=== PATIENT | female | born 1965 | race Caucasian/White ===

== ENCOUNTER → 2017-11-17 11:03 | Outpatient (CLI) | payer OTHER, SELFPAY ==
--- NOTE | 2017-11-17 11:09 | CT_ITS ---
STUDY: LOW DOSE CT LUNG CANCER SCREENING REASON FOR EXAM: Female, 52 years old. History of positive PPD for 22 years. COPD. Right-sided chest pain RADIATION DOSAGE (If Supplied By Facility): CTDIvol = ( 3.02 ) mGy, DLP = ( 103.07 ) mGycm TECHNIQUE: No contrast was administered. Low dose technique was utilized (average mAS-38 and kVp 120). 1.25 mm axial source images with a slice interval of 1.25-mm were reconstructed in lung windows. 2.5 mm axial source images with a slice interval of 2.5-mm were reconstructed in lung windows. 5.0 mm axial source images with a slice interval of 5.0-mm were reconstructed in soft tissue windows. Nodule measured using lung windows on PACS and/or independent workstation with automated measurement of minimum and maximum diameter. Nodule measurement reported as average diameter rounded to the nearest whole number. Growth is defined as an increase ins size of greater than 1.5 mm. COMPARISON: None. NODULES: There are 2 tiny 3 mm nodules in the periphery of the right apex on axial images 43-47. Both of these appear to have a speck of calcium and are most consistent with granulomas, but follow-up in 6 months is recommended in this patient with a history of smoking. A 3 mm calcified granuloma is seen in the superior segment of the left lower lobe, axial image 105. No other nodules are seen. No infiltrates. No effusions. Evaluation of the soft tissues is very limited on this noncontrast low radiation dose study but no gross acute abnormality seen. Heart size is normal. Grossly normal aorta and pulmonary arteries. No gross mediastinal mass. Small indeterminate mediastinal lymph nodes are seen. Indeterminant lymph nodes also seen in both axilla. Limited views through the upper abdomen show no gross acute abnormality. Skeletal structures are grossly negative. CT/Low Dose CT Lung Screening IMPRESSION: No definite acute abnormality. No specific evidence for COPD. 2 3 mm nodules in the right apex are most likely granulomas but recommend follow-up in 6 months. Note that this low dose screening CT scan is inadequate to evaluate the soft tissues. Electronically Signed: Ephraim Mora MD at 18:18 EDT , Service support ,
== END ==
PROVIDERS: Family Provider Family Medicine; PCP Family Medicine; Referring Provider Family Medicine; Visit Provider Family Medicine
DX: Z12.2 Encounter for screening for malignant neoplasm of respiratory organs (principal); J42 Unspecified chronic bronchitis; Z72.0 Tobacco use
CPT/HCPCS: G0297

== ENCOUNTER → 2017-11-22 16:00 | Outpatient (CLI) | payer OTHER, SELFPAY | PROVIDERS: Family Provider Family Medicine; PCP Family Medicine; Referring Provider Otolaryngology Otolaryngology/Facial Plastic Surgery; Visit Provider Otolaryngology Otolaryngology/Facial Plastic Surgery | DX: J02.9 Acute pharyngitis, unspecified (principal) | CPT/HCPCS: 87070 ==

== ENCOUNTER → 2017-12-08 08:58 | Outpatient (CLI) | payer OTHER, SELFPAY ==
--- NOTE | 2017-12-08 09:00 | CT_ITS ---
STUDY: CT MAXILLOFACIAL SINUSES REASON FOR EXAM: Female, 52 years old. Sinusitis RADIATION DOSAGE (If Supplied By Facility): CTDIvol = ( 29.38 ) mGy, DLP = ( 415.23 ) mGycm TECHNIQUE: The patient was scanned in a multi detector CT scanner. High resolution axial imaging was performed without the administration of intravenous contrast material. Sagittal and coronal images were reconstructed. # of Images: 402 Individualized dose optimization techniques were used for this CT. COMPARISON: None. FINDINGS: No acute fractures identified. There is some degenerative changes seen within the visualized cervical spine. The mastoid air cells appear clear. Carotid artery calcifications are noted. There is minimal paranasal sinus thickening. There is no air-fluid levels identified. The bilateral globes appear intact. No significant intraconal fatty stranding is seen. Visualized intracranial contents appear grossly unremarkable. CT/Sinus/Facial Bone IMPRESSION: Minimal paranasal sinus thickening. No air-fluid levels. Electronically Signed: Thomas Mabry, at 7:57 EDT Tel , Service support ,
== END ==
PROVIDERS: Family Provider Family Medicine; PCP Family Medicine; Referring Provider Otolaryngology Otolaryngology/Facial Plastic Surgery; Visit Provider Otolaryngology Otolaryngology/Facial Plastic Surgery
DX: J32.9 Chronic sinusitis, unspecified (principal)
CPT/HCPCS: 70486

== ENCOUNTER → 2017-12-21 08:02 | Outpatient (CLI) | payer OTHER, SELFPAY ==
--- NOTE | 2017-12-21 08:13 | RAD_ITS ---
STUDY: X-RAY - ESOPHAGUS (BARIUM SWALLOW) WITH FLUOROSCOPY REASON FOR EXAM: Female, 52 years old. Dysphagia. Difficulty breathing. TECHNIQUE: 30 view(s) of the esophagus were obtained following swallowing of barium. FLUOROSCOPY TIME (if supplied): (0:56) minutes/seconds COMPARISON: None. FINDINGS: There is no demonstrated esophageal foreign body. There is no demonstrated stricture or mucosal abnormality. Normal gastroesophageal junction, without a demonstrated hiatal hernia. The patient ingested a 12 mm tablet of barium without any difficulty. Normal visualized aortic arch and descending thoracic aorta. Normal visualized pulmonary parenchyma. Normal visualized osseous structures of the thorax. RAD/Esophagus Only IMPRESSION: Normal plain film x-ray examination (barium swallow) of the esophagus. Electronically Signed: Scooby Phelps MD at 9:12 EDT Tel [phone], Service support ,
== END ==
LOC: RAD 08:02
PROVIDERS: Family Provider Family Medicine; PCP Family Medicine; Referring Provider Otolaryngology Otolaryngology/Facial Plastic Surgery; Visit Provider Otolaryngology Otolaryngology/Facial Plastic Surgery
DX: R13.10 Dysphagia, unspecified (principal)
CPT/HCPCS: 74220

== ENCOUNTER → 2018-01-22 15:01 | Outpatient (CLI) | payer OTHER, SELFPAY ==
[2018-01-22 18:08] LABS: ALB/GLOB Ratio 0.9 RATIO (0.9-2.4); AST(SGOT) 17 U/L (15-37); Alanine Aminotransfer ALT/SGPT 26 U/L (13-56); Albumin, Serum 3.7 g/dL (3.2-5.0); Alkaline Phosphatase 85 U/L (45-117); Anion Gap 8 (5-15); BUN 9 mg/dL (7-18); BUN/Creat Ratio 12.3 RATIO (10-20); CRP 4.97 mg/L (0.0-3.0); Calcium,Total 8.8 mg/dL (8.5-10.1); Chloride 104 mmol/L (98-107); Creatinine, Serum 0.73 mg/dL (0.55-1.02); EST Glomerular Filtration Rate 88 mL/min (>60); Est Glom Filt Rate - Afr Amer 107 mL/min (>60); Globulin 4.1 g/dL (2.2-4.2); Glucose 111 mg/dL (74-106); Potassium 3.6 mmol/L (3.5-5.1); Protein, Total 7.8 g/dL (6.4-8.2); Sodium Level 140 mmol/L (136-145)
== END ==
PROVIDERS: Family Provider Family Medicine; PCP Family Medicine; Referring Provider Internal Medicine Gastroenterology; Visit Provider Internal Medicine Gastroenterology
DX: R10.9 Unspecified abdominal pain (principal); R10.13 Epigastric pain
CPT/HCPCS: 36415; 80053; 82784; 83516; 86140; 86255

== ENCOUNTER → 2019-04-09 14:47 | Outpatient (CLI) | payer OTHER, SELFPAY ==
[2019-04-09 17:27] LABS: Absolute Lymphocyte Count 3.67 X10^3/uL (0.83-4.51); Absolute Neutrophil Count 4.8 X10^3/uL (2.0-7.7); Basophil# 0.09 X10^3/uL; Basophil% 0.9 % (0-1); Eosinophil# 0.26 X10^3/uL; Eosinophils% 2.7 % (0-5); Hematocrit 39.7 % (37-47); Hemoglobin 12.7 g/dL (12.0-15.0); Lymphocyte # 3.67 X10^3/ul (4.0); Lymphocyte % 38.7 % (19-41); Mean Corpuscular Hgb 28.8 pg (27.0-32.0); Mean Platelet Vol. 8.7 fl (6.2-12.0); Monocyte# 0.61 X10^3/uL; Monocyte% 6.4 % (0-10); NRBC Flagged by Analyzer 0 % (0-5); Neutrophil # 4.84 X10^3/uL (2.7-7.7); Neutrophil % 51.1 % (47-70); Platelet Count 367 K/mm3 (150-450); RBC Distribution Width CV 13.9 % (11.6-14.6); RBC Distribution Width SD 45.7 fl (35.1-43.9); Red Blood Count 4.41 M/mm3 (4.2-5.4); White Blood Count 9.5 K/mm3 (4.4-11.0)
[2019-04-09 17:51] LABS: Progesterone Level 0.06 ng/mL (See Comment); Vitamin B12 543 pg/mL (211-911)
[2019-04-09 18:28] LABS: Amphetamine Urine VISTA NEGATIVE (<1000 ng/mL); Barbiturate Urine VISTA NEGATIVE (< 200 ng/mL); Benzodiazepine Urine VISTA NEGATIVE (< 200 ng/mL); Cocaine Urine VISTA NEGATIVE (< 300 ng/mL); Ecstacy Urine VISTA NEGATIVE (< 500 ng/mL); Methadone Urine VISTA NEGATIVE (< 300 ng/mL); PCP Urine VISTA NEGATIVE (< 25 ng/mL); THC Urine VISTA NEGATIVE (< 50 ng/mL); Vista UDS pH Range 6
[2019-04-09 18:59] LABS: AST(SGOT) 25 U/L (15-37); Alanine Aminotransfer ALT/SGPT 42 U/L (13-56); Albumin, Serum 3.9 g/dL (3.2-5.0); Alkaline Phosphatase 92 U/L (45-117); Anion Gap 7 (5-15); BUN 9 mg/dL (7-18); BUN/Creat Ratio 12.7 RATIO (10-20); Calcium,Total 9.4 mg/dL (8.5-10.1); Chloride 104 mmol/L (98-107); Creatinine, Serum 0.71 mg/dL (0.55-1.02); EST Glomerular Filtration Rate 91 mL/min (>60); Est Glom Filt Rate - Afr Amer 111 mL/min (>60); Estradiol 16.2 pg/mL; Ferritin 26 ng/mL (8-252); Free T3 3.3 pg/mL (2.18-3.98); Globulin 3.9 g/dL (2.2-4.2); Glucose 92 mg/dL (74-106); Iron 50 ug/dL (50-170); Potassium 3.8 mmol/L (3.5-5.1); Protein, Total 7.8 g/dL (6.4-8.2); Sodium Level 140 mmol/L (136-145); T4 Free Direct 1.09 ng/dL (0.76-1.46); Thyroid Stim Hormone (TSH) 1.05 uIU/mL (0.358-3.74)
[2019-04-11 15:19] LABS: ANTINUCLEAR ANTIBODIES DIRECT Negative (Negative)
[2019-04-11 16:08] LABS: Endomysial Antibody IgA Negative (Negative)
[2019-04-11 16:46] LABS: Immunoglobulin A 165 mg/dL (87-352); t-Transglutaminase IgA <2 U/mL (0-3)
== END ==
LOC: BFHLAB 14:49
PROVIDERS: PCP Family Medicine; Visit Provider Family Medicine
DX: Z79.899 Other long term (current) drug therapy (principal); R49.0 Dysphonia; R53.83 Other fatigue; E55.9 Vitamin D deficiency, unspecified; E53.8 Deficiency of other specified B group vitamins; R68.2 Dry mouth, unspecified; M25.50 Pain in unspecified joint; D64.9 Anemia, unspecified; R61 Generalized hyperhidrosis; N91.0 Primary amenorrhea; R10.9 Unspecified abdominal pain
CPT/HCPCS: 36415; 80053; 80307; 82306; 82570; 82607; 82670; 82728; 82784; 83516; 83540; 84144; 84439; 84443; 84481; 85025; 86038; 86225; 86235; 86255

== ENCOUNTER → 2019-04-19 10:48 | Outpatient (CLI) | payer OTHER, SELFPAY ==
--- NOTE | 2019-04-19 10:58 | RAD_ITS ---
STUDY: X-RAY - PARANASAL SINUSES REASON FOR EXAM: Female, 53 years old. SINUSITIS TECHNIQUE: 3 view(s) of the paranasal sinuses were obtained. COMPARISON: None. FINDINGS: Normal visualized frontal, maxillary, ethmoidal and sphenoid sinuses. Normal visualized facial bones. The soft tissue structures are unremarkable. RAD/Sinuses min 3 Views IMPRESSION: Normal x-rays of the paranasal sinuses. Electronically Signed: Fermin Thompson MD ([place]) at 12:57 EST , Service support ,
--- NOTE | 2019-04-19 11:01 | US_ITS ---
STUDY: THYROID ULTRASOUND REASON FOR EXAM: Female, 53 years old. THYROMEGALY, LYMPHADENOPATHY TECHNIQUE: Ultrasound evaluation of the thyroid was performed with real-time and static goode-scale imaging. COMPARISON: None. FINDINGS: RIGHT LOBE: The right lobe of the thyroid gland measures 4.2 x 1.5 x 2.0 cm. There is a homogeneous echotexture. There are no demonstrated solid, cystic or complex lesions. LEFT LOBE: The left lobe of the thyroid gland measures 4.1 x 1.6 x 1.3 cm. There is a homogeneous echotexture. There are no demonstrated solid, cystic or complex lesions. ISTHMUS: The isthmus measures 0.4 cm. There are mildly enlarged lymph nodes of the bilateral submandibular spaces as well as left jugular chain. Right submandibular lymph node measures 23 x 14 x 9 mm and left submandibular lymph node measures 23 x 15 x 7 mm. Left jugular chain lymph node measures 26 x 12 x 6 mm. The lymph nodes do have a preserved reniform shape, smooth margins and central echogenic valeri, suggesting reactive causes. US/Thyroid IMPRESSION: 1. Normal ultrasound examination of the thyroid. 2. Prominent, reactive appearing lymph nodes of the bilateral submandibular and left jugular chains. Electronically Signed: Fermin Thompson MD ([place]) at 12:56 EST , Service support ,
== END ==
LOC: US 10:50
PROVIDERS: PCP Family Medicine; Referring Provider Family Medicine; Visit Provider Family Medicine
DX: R59.0 Localized enlarged lymph nodes (principal); E01.0 Iodine-deficiency related diffuse (endemic) goiter; J32.9 Chronic sinusitis, unspecified
CPT/HCPCS: 70220; 76536

== ENCOUNTER → 2019-05-02 15:28 | Outpatient (CLI) | payer OTHER, SELFPAY ==
[2019-05-02 16:25] LABS: Creatinine, Urine (random) < 13.00 mg/dL (NO RANGE EST.)
[2019-05-02 16:26] LABS: Amphetamine Urine VISTA NEGATIVE (<1000 ng/mL); Barbiturate Urine VISTA NEGATIVE (< 200 ng/mL); Benzodiazepine Urine VISTA NEGATIVE (< 200 ng/mL); Cocaine Urine VISTA NEGATIVE (< 300 ng/mL); Ecstacy Urine VISTA NEGATIVE (< 500 ng/mL); Methadone Urine VISTA NEGATIVE (< 300 ng/mL); PCP Urine VISTA NEGATIVE (< 25 ng/mL); THC Urine VISTA NEGATIVE (< 50 ng/mL); Vista UDS pH Range 6
== END ==
LOC: LAB.FUTURE 15:29
PROVIDERS: PCP Family Medicine; Visit Provider Family Medicine
DX: Z79.899 Other long term (current) drug therapy (principal)
CPT/HCPCS: 80307; 82570

== ENCOUNTER 2020-08-02 15:30 | Emergency (ER) | payer BC, SELFPAY ==
[2020-08-02 15:31] VITALS: BP 165/108; PULSE 116; RESP 18; TEMP 36.8; O2SAT 97; BMI 28.9
[2020-08-02 15:59] LABS: Bacteria 0 SEEN /hpf (None Seen); Mucous, Urine 0 SEEN /hpf (<or=2+); White Blood Cells 0 SEEN /hpf (0-5)
[2020-08-02 16:04] LABS: Color, Urine Yellow (Yellow); Glucose, Dipstick Normal (Normal); Ketone-Dipstick Negative (Negative); Leukocyte Esterase-Dipstick Negative /ul (Negative); Nitrite-Dipstick Negative (Negative); Occult Blood-Urine 25 /ul (Negative); Protein-Dipstick Negative (Negative); Specific Gravity, Urine 1.005 (1.002-1.030); Urine Bilirubin Dipstick Negative (Negative); Urine Clarity Sl. Cloudy (Clear); Urine Urobilinogen Normal (Normal)
[2020-08-02 16:19] LABS: Red Blood Cells-Urine 0-5 SEEN /hpf (0-5); Squamous Epithelial Cells - UA 0-5 SEEN /hpf (5-10)
--- NOTE | 2020-08-02 16:38 | EDS_ITS ---
HPI HPI - GI History of Present Illness Chief Complaint: GI Bleed Narrative Narrative: Patient presenting to to bloody diarrhea. She states that this has been going on for about the last week. Patient states that she will have a couple up to multiple episodes per day they typically are associated with eating or drinking. States that it is typically explosive diarrhea and there are blood splatters going around the toilet bowl. She denies that she has any gross rectal bleeding. She denies any rectal pain. She does report that she gets some suprapubic pressure. Patient does state that she has been getting some chills associated with this denies any unintended weight loss. She denies any night sweats associated with this. Patient denies that she has had any recent hospital admissions, antibiotics exposures, she does not work in and around a prison no recent abnormal travel. Review of systems otherwise negative. [facility] Medical History Anxiety Bronchitis Chronic hoarseness Chronic obstructive pulmonary disease fallopian tube burst GERD (gastroesophageal reflux disease) HTN (hypertension) Ruptured cyst of ovary Sinus tachycardia Sinusitis SOB (shortness of breath) Tobacco abuse Home Medications hydroxyzine HCl 25 mg PO Q6H PRN 03/10/16 [History Last Taken Unknown] albuterol sulfate 2.5 mg INHALATION Q4H PRN #180 ml 02/07/17 [Rx Last Taken Unknown] albuterol sulfate 90 mcg/actuation aerosol inhaler 1 puff INHALATION Q6H 02/21/17 [History Last Taken Unknown] esomeprazole magnesium 20 mg capsule,delayed release 20 mg PO QDAY cap 02/21/17 [History Last Taken Unknown] acetaminophen 500 mg tablet 1,000 mg PO Q4H PRN tab 02/22/17 [History Last T aken Unknown] lorazepam 0.5 mg tablet 0.5 mg PO QDAY tab 02/22/17 [History Last Taken Unknown] multivitamin 1 tab PO QDAY 02/22/17 [History Last Taken Unknown] omega-3 fatty acids 500 mg capsule 500 mg PO BID cap 02/22/17 [History Last Taken Unknown] ipratropium 0.5 mg-albuterol 3 mg (2.5 mg base)/3 mL nebulization soln 3 ml INHALATION Q4H PRN PRN #360 vial 09/30/18 [Rx Last Taken Unknown] loperamide [Imodium A-D] 2 mg PO Q6H PRN #14 cap 08/02/20 [Rx Last Taken Unknown] Allergy/AdvReac Type Severity Reaction Status Date / Time latex Allergy Severe Hives Verified 08/02/20 15:31 Penicillins Allergy Severe Angioedema Verified 08/02/20 15:31 diltiazem [From Cardizem] AdvReac Intermediate knee Verified 08/02/20 15:31 swelling methylprednisolone AdvReac Intermediate Other Verified 08/02/20 15:31 prednisone AdvReac Intermediate Other Verified 08/02/20 15:31 Sulfa (Sulfonamide AdvReac Mild Other Verified 08/02/20 15:31 Antibiotics) clarithromycin [From Biaxin] AdvReac Unknown Verified 08/02/20 15:31 paroxetine [From Paxil] AdvReac Unknown Verified 08/02/20 15:31 anti depressant AdvReac Severe Anxious Uncoded 08/02/20 15:31 Family History Mother Heart disease Hypertension Uncle Myocardial infarction Aunt Kidney disease Father CVA (cerebral vascular accident) Cancer Sister Asthma Anxiety Surgical History History of cholecystectomy Social History Smoking Status: Current every day smoker tobacco type: cigarettes second hand exposure: Yes alcohol intake: never substance use type: does not use ROS ROS ED Constitutional Constitutional ED: Reports chills ENT ENT ED: Denies rhinorrhea Cardiovascular Cardiovascular: Denies chest pain Respiratory/Chest Respiratory/Chest: Denies cough or dyspnea Gastrointestinal Gastrointestinal: Reports diarrhea Genitourinary Genitourinary ED: Denies dysuria or hematuria Musculoskeletal Musculoskeletal: Denies back pain Integumentary Denies rash Neurologic Neurologic: Denies paresthesias or weakness Psychiatric Psychiatric: Denies depression Endocrine Endocrinology: Denies fatigue Allergic/Immunologic Allergic/Immunologic ED: Denies urticaria EXAM Physical Exam Const Vital Signs: 08/02/20 15:31 Temperature 98.2 F Temperature Source Temporal Pulse Rate 116 H Respiratory Rate 18 Blood Pressure 165/108 H Blood Pressure Mean 127 Pulse Ox 97 Oxygen Delivery Method Room Air Positive well nourished and well developed General Appearance ED: well developed and NAD HEENT Reports moist mucous membranes HEENT Narrative: No evidence of conjunctival pallor or scleral icterus Negative for trauma or tenderness Eyes EOMs intact bilaterally Neck no lymphadenopathy, supple and no JVD Chest Wall inspection of chest normal Resp normal respiratory effort and clear to auscultation bilaterally Cardio regular rate, regular rhythm, no murmurs and peripheral pulses 2+ throughout GI normal to inspection, nondistended, normoactive bowel sounds, non-tender and no masses GI Narrative: Chaperoned rectal exam shows a normal external anus with mild erythematous changes consistent with the patient having diarrhea. She has a nontender lower digital rectal exam, no evidence of hernias, no evidence of gross bleeding. No palpable masses noted. Palpation: soft Back/Spine normal to inspection Extremity normal to inspection General Extremety ED: Negative for tenderness Neuro oriented x3 and no sensory deficits noted Sensorium / Orientation: alert Motor Exam: strength 5/5 throughout Psych mental status grossly normal Skin no rashes or lesions noted MDM MDM MDM Narrative Medical decision making narrative: Patient presented secondary to frequent diarrhea as well as bloody stools. She does not have any gross bleeding on physical exam. Patient's hemoglobin is stable at 14.2 she is not on any sort of anticoagulants no significant evidence of other abnormalities in her CBC chemistry and urinalysis. Patient at this point has been having frequent diarrhea, and has been having some blood in there. She has no risk factors for infectious colitis I placed patient on a course of Imodium. Due to her bleeding she will be given a referral to Dr. Bowers for potential colonoscopy. Patient was discharged in stable condition. Lab Data Labs: Laboratory Results - last 24 hr 08/02/20 08/02/20 08/02/20 15:50 16:53 16:53 WBC 8.9 RBC 4.95 Hgb 14.2 Hct 44.2 MCV 89.3 MCH 28.7 MCHC 32.1 RDW Std Deviation 44.5 H RDW Coeff of Hilario 13.6 Plt Count 371 MPV 8.3 Immature Gran % (Auto) 0.300 Neut % (Auto) 58.5 Lymph % (Auto) 31.5 Wheeler % (Auto) 7.7 Eos % (Auto) 1.2 Baso % (Auto) 0.8 Absolute Neuts (auto) 5.2 Absolute Lymphs (auto) 2.79 Nucleated RBC % 0 Sodium 140 Potassium 3.7 Chloride 105 Carbon Dioxide 28.0 Anion Gap 7 BUN 6 L Creatinine 0.78 Estim Creat Clear Calc 60.77 Est GFR (MDRD) Af Amer 98 Est GFR (MDRD) Non-Af 81 BUN/Creatinine Ratio 7.7 L Glucose 94 Calcium 9.2 Urine Color Yellow Urine Clarity Sl. Cloudy Urine pH 7.0 Ur Specific [place] 1.005 Urine Protein Negative Urine Glucose (UA) Normal Urine Ketones Negative Urine Occult Blood 25 H Urine Nitrite Negative Urine Bilirubin Negative Urine Urobilinogen Normal Ur Leukocyte Esterase Negative Urine RBC 0-5 SEEN Urine WBC 0 SEEN Ur Squamous Epith Cells 0-5 SEEN Urine Bacteria 0 SEEN Urine Mucus 0 SEEN Discharge Plan Triage Chief Complaint: GI Bleed ED Provider: Delfino Isidro Dx/Rx/DC Orders Clinical Impression: Bloody diarrhea Instructions: ED Lower GI Bleeding (Stable) Prescriptions: New loperamide [Imodium A-D] 2 mg capsule 2 mg PO Q6H PRN (Reason: loose stool) Qty: 14 RF: 0 No Action multivitamin tablet 1 tab PO QDAY RF: 0 albuterol sulfate [ProAir HFA] 90 mcg/actuation HFA aerosol inhaler 1 puff INHALATION Q6H RF: 0 esomeprazole magnesium [Nexium] 20 mg capsule,delayed release(DR/EC) 20 mg PO QDAY RF: 0 acetaminophen [Tylenol Extra Strength] 500 mg tablet 1,000 mg PO Q4H PRNRF: 0 hydroxyzine HCl 25 MG tablet 25 mg PO Q6H PRN (Reason: Anxiety) RF: 0 lorazepam 0.5 MG tablet 0.5 mg PO QDAY RF: 0 omega-3 fatty acids 500 MG capsule 500 mg PO BID RF: 0 albuterol sulfate 2.5 mg /3 mL (0.083 %) solution for nebulization 2.5 mg INHALATION Q4H PRN (Reason: Sob &/Or Wheezing) Qty: 180 RF: 3 ipratropium-albuterol 0.5 mg-3 mg(2.5 mg base)/3 mL solution for nebulization 3 ml INHALATION Q4H PRN PRN (Reason: COPD J44.9) Qty: 360 RF: 3 Primary Care Provider: Areli Hobson Referrals: Linden Bowers MD [STAFF PHYSICIAN] - 1 Week if not improving Areli Hobson DO [Primary Care Provider] - Disposition Disposition: Home, self care
[2020-08-02 17:08] LABS: Absolute Lymphocyte Count 2.79 X10^3/uL (0.83-4.51); Absolute Neutrophil Count 5.2 X10^3/uL (2.0-7.7); Basophil# 0.07 X10^3/uL; Basophil% 0.8 % (0-1); Eosinophil# 0.11 X10^3/uL; Eosinophils% 1.2 % (0-5); Hematocrit 44.2 % (37-47); Hemoglobin 14.2 g/dL (12.0-15.0); Lymphocyte # 2.79 X10^3/ul (0.83-4.51); Lymphocyte % 31.5 % (19-41); Mean Corp Hgb Conc 32.1 g/dL (32-36); Mean Corpuscular Hgb 28.7 pg (27.0-32.0); Mean Corpuscular Volume 89.3 fL (81-99); Mean Platelet Vol. 8.3 fl (6.2-12.0); Monocyte# 0.68 X10^3/uL; Monocyte% 7.7 % (0-10); NRBC Flagged by Analyzer 0 % (0-5); Neutrophil # 5.18 X10^3/uL (2.7-7.7); Neutrophil % 58.5 % (47-70); Platelet Count 371 K/mm3 (150-450); RBC Distribution Width CV 13.6 % (11.6-14.6); RBC Distribution Width SD 44.5 fl (35.1-43.9); Red Blood Count 4.95 M/mm3 (4.2-5.4); White Blood Count 8.9 K/mm3 (4.4-11.0)
[2020-08-02 17:23] LABS: Anion Gap 7 (5-15); BUN 6 mg/dL (7-18); BUN/Creat Ratio 7.7 RATIO (10-20); Calcium,Total 9.2 mg/dL (8.5-10.1); Chloride 105 mmol/L (98-107); Creatinine, Serum 0.78 mg/dL (0.55-1.02); EST Glomerular Filtration Rate 81 mL/min (>60); Est Glom Filt Rate - Afr Amer 98 mL/min (>60); Estimated Creatinine Clearance 60.77 ml/min; Glucose 94 mg/dL (74-106); Potassium 3.7 mmol/L (3.5-5.1); Sodium Level 140 mmol/L (136-145)
== END 2020-08-02 18:14 | disposition home or self-care (01) ==
PROVIDERS: Emergency Provider Emergency Medicine; PCP Family Medicine
DX: K92.1 Melena (principal); R19.7 Diarrhea, unspecified; I10 Essential (primary) hypertension; J44.9 Chronic obstructive pulmonary disease, unspecified; J32.9 Chronic sinusitis, unspecified; K21.9 Gastro-esophageal reflux disease without esophagitis; F41.9 Anxiety disorder, unspecified; F17.210 Nicotine dependence, cigarettes, uncomplicated; Z79.52 Long term (current) use of systemic steroids; Z79.899 Other long term (current) drug therapy
CPT/HCPCS: 80048; 81001; 85025; 99282; A4216

== ENCOUNTER → 2020-12-07 12:29 | Outpatient (CLI) | payer BC, SELFPAY ==
[2020-12-07 13:01] VITALS: PULSE 104; PULSE 113; PULSE 114; PULSE 115; PULSE 116; PULSE 117; O2SAT 95; O2SAT 96; O2SAT 97
--- NOTE | 2020-12-10 07:38 | PCM.PSN.6M ---
PSN 6 Minute Walk Test 6 Minute Walk Test 6 Minute Walk Test: 6 Minute Walk Test PSN:6-Minute Walk Test Start: 12/07/20 12:59 Freq: Status: Active Protocol: RESP.6MINW Document 12/07/20 13:01 NORA (Rec: 12/07/20 13:04 NORA [id number]) 6 Minute Walk Test Date Performed 12/07/20 Time Performed 12:40 Height 5 ft 1.5 in Weight: 69.4 kg Weight in Pounds 153.[address]: Wes Oneal Assistive device used: None Pre-test Oxygen Delivery Method Room Air Pulse Ox (%) 96 Pulse Rate (60-100 beats/min) 113 H Dyspnea Chitra Scale (0-10) 0.5 Exertion Chitra Scale (6-20) 6 1st minute Oxygen Delivery Method Room Air Pulse Ox (%) 96 Pulse Rate (60-100 beats/min) 114 H 2nd minute Oxygen Delivery Method Room Air Pulse Ox (%) 96 Pulse Rate (60-100 beats/min) 117 H 3rd minute Oxygen Delivery Method Room Air Pulse Ox (%) 96 Pulse Rate (60-100 beats/min) 116 H 4th minute Oxygen Delivery Method Room Air Pulse Ox (%) 95 Pulse Rate (60-100 beats/min) 115 H 5th minute Oxygen Delivery Method Room Air Pulse Ox (%) 96 Pulse Rate (60-100 beats/min) 115 H 6th minute Oxygen Delivery Method Room Air Pulse Ox (%) 96 Pulse Rate (60-100 beats/min) 115 H Dyspnea Chitra Scale (0-10) 1 Exertion Chitra Scale (6-20) 12 Post-test Oxygen Delivery Method Room Air Pulse Ox (%) 97 Pulse Rate (60-100 beats/min) 104 H Full Laps Walked 18 Partial Lap, Number of Tiles Walked 10 Total Distance Walked (ft) 1072 Interpretation Interpretation: The patient ambulated 1072 feet over the course of 6 minutes beginning on room air without assistive devices. Pretesting oxygen saturation was noted to be 96% on room air. With ambulation, the mya oxygen saturation was 95%. There was no significant exertional oxygen desaturation. Recommendations Recommendations: There is no indication for the use of supplemental oxygen at this time.
== END ==
PROVIDERS: PCP Family Medicine; Referring Provider Internal Medicine Critical Care Medicine; Visit Provider Internal Medicine Critical Care Medicine
DX: J44.9 Chronic obstructive pulmonary disease, unspecified (principal)
CPT/HCPCS: 94618

== ENCOUNTER → 2020-12-09 07:09 | Outpatient (CLI) | payer BC, SELFPAY ==
--- NOTE | 2020-12-10 07:53 | PFT ---
INTRODUCTION: The patient is a 55-year-old female that presents for pulmonary function studies secondary to a diagnosis of COPD. Respiratory therapy reported good patient effort. Bronchodilators were used during testing. INTERPRETATION: Forced expiration spirometry demonstrates the presence of a moderately severe large airways obstructive ventilatory defect. There was a significant response to aerosolized bronchodilators. Spirograms are of fair quality but do not plateau indicating slow emptying of the lungs. Body plethysmography was performed and revealed an elevated TLC and RV, indicative of underlying hyperinflation and air trapping. Diffusing capacity by single breath CO was noted to be 73% of predicted. When compared to prior pulmonary function studies in October 2016, there has been 24% reduction in FEV1 and FVC. IMPRESSION: Partially reversible moderately severe large airways obstructive ventilatory defect with associated hyperinflation and air trapping.
== END ==
PROVIDERS: PCP Family Medicine; Referring Provider Internal Medicine Critical Care Medicine; Visit Provider Internal Medicine Critical Care Medicine
DX: J44.9 Chronic obstructive pulmonary disease, unspecified (principal)
CPT/HCPCS: 94060; 94726; 94729

== ENCOUNTER → 2021-11-23 | Outpatient (CLI) | payer BC, SELFPAY ==
--- NOTE | 2021-11-23 14:33 | RAD_ITS ---
STUDY: X-RAY - LEFT SHOULDER REASON FOR EXAM: Female, 56 years old. ARM PAIN AND WEAKNESS TECHNIQUE: 4 view(s) of the shoulder. COMPARISON: None. FINDINGS: Narrowed glenohumeral articulation. Normal acromioclavicular joint. Normal acromion. Normal humeral head and visualized proximal humerus. Periarticular calcifications likely due to calcific tendinitis. Normal visualized pulmonary apex. RAD/Shoulder min 2 Views IMPRESSION: Degenerative changes. No evidence for acute fracture or other significant bony pathology Electronically Signed: Glenn Kraus MD at 18:21 EDT ,
--- NOTE | 2021-11-23 14:33 | RAD_ITS ---
STUDY: X-RAY - CERVICAL SPINE REASON FOR EXAM: Female, 56 years old. ARM PAIN AND WEEKNESS TECHNIQUE: 5 view(s) of the cervical spine were obtained. COMPARISON: None FINDINGS: Normal anterior atlantoaxial articulation. Normal odontoid process. Normal cervical lordosis. No evidence for acute fracture or subluxation. There is narrowing of C5-6 and C6-7 disc spaces with endplate spurring. There is associated mild multilevel neuroforaminal stenosis secondary to bony hypertrophy bilaterally The soft tissue structures are unremarkable. RAD/Cerv Spine 4 or 5 Views IMPRESSION: Mild spondylosis. No acute fracture or subluxation Electronically Signed: Glenn rKaus MD at 18:20 EDT ,
== END | disposition home or self-care (01) ==
LOC: MTRAD 14:30
PROVIDERS: PCP Family Medicine; Referring Provider Family Medicine; Visit Provider Family Medicine
DX: M19.012 Primary osteoarthritis, left shoulder (principal); M47.812 Spondylosis without myelopathy or radiculopathy, cervical region
CPT/HCPCS: 72050; 73030

== ENCOUNTER → 2021-12-03 | Outpatient (CLI) | payer BC, SELFPAY ==
--- NOTE | 2021-12-03 09:58 | CT_ITS ---
EXAM: CT CHEST, LUNG CANCER SCREENING WITHOUT INTRAVENOUS CONTRAST CLINICAL INDICATION: SCREENING NICOTINE DEP TECHNIQUE: Helically acquired images were obtained of the chest without intravenous contrast using low dose (LDCT) lung cancer screening protocol. This CT exam was performed using one or more of the following dose reduction techniques: automated exposure control, adjustment of the mA and/or kV according to patient size, and/or use of iterative reconstruction technique. This report was created using [employer] report generation technology. COMPARISON: None. FINDINGS: LUNGS AND PLEURAL SPACES: There is a calcified granuloma in the left lower lobe. No mass. No pleural effusion or thickening. No pneumothorax. HEART: Unremarkable. Heart size is normal. No pericardial effusion. No significant coronary artery calcifications. MEDIASTINUM: Unremarkable. No mediastinal or hilar adenopathy. Esophagus is unremarkable. No hiatal hernia. THYROID: Unremarkable. No thyroid lesions. BONES/JOINTS: Unremarkable. No suspicious lytic or blastic abnormality. VASCULATURE: Unremarkable. Thoracic aorta is non-dilated. LYMPH NODES: Unremarkable. No enlarged lymph nodes. CT/Low Dose CT Lung Screening IMPRESSION: No acute pulmonary abnormality. Lung-RADS score: 1 - Recommend continued annual screening with low-dose CT (LDCT) in 12 months. Electronically Signed: Kal Borges MD at 23:51 EDT ,
== END | disposition home or self-care (01) ==
LOC: CT 09:55
PROVIDERS: PCP Family Medicine; Referring Provider Family Medicine; Visit Provider Family Medicine
DX: Z12.2 Encounter for screening for malignant neoplasm of respiratory organs (principal); Z87.891 Personal history of nicotine dependence
CPT/HCPCS: 71271

== ENCOUNTER → 2022-01-11 | Outpatient (CLI) | payer BC, SELFPAY ==
[2022-01-11 15:27] LABS: Hematocrit 42.4 % (37-47); Hemoglobin 13.3 g/dL (12.0-15.0); Mean Corp Hgb Conc 31.4 g/dL (32-36); Mean Corpuscular Hgb 28.1 pg (27.0-32.0); Mean Corpuscular Volume 89.5 fL (81-99); Mean Platelet Vol. 8.4 fl (6.2-12.0); Platelet Count 445 K/mm3 (150-450); RBC Distribution Width CV 13.8 % (11.6-14.6); RBC Distribution Width SD 45.4 fl (35.1-43.9); Red Blood Count 4.74 M/mm3 (4.2-5.4); White Blood Count 9.1 K/mm3 (4.4-11.0)
[2022-01-11 16:11] LABS: ALB/GLOB Ratio 0.9 RATIO (0.9-2.4); AST(SGOT) 15 U/L (15-37); Alanine Aminotransfer ALT/SGPT 18 U/L (13-56); Albumin, Serum 3.7 g/dL (3.2-5.0); Alkaline Phosphatase 81 U/L (45-117); Anion Gap 8 (5-15); BUN 8 mg/dL (7-18); BUN/Creat Ratio 11.3 RATIO (10-20); Calcium,Total 9.3 mg/dL (8.5-10.1); Chloride 103 mmol/L (98-107); Creatinine, Serum 0.71 mg/dL (0.55-1.02); EST Glomerular Filtration Rate 90 mL/min (>60); Est Glom Filt Rate - Afr Amer 109 mL/min (>60); Globulin 3.9 g/dL (2.2-4.2); Glucose 98 mg/dL (74-106); Potassium 4.9 mmol/L (3.5-5.1); Protein, Total 7.6 g/dL (6.4-8.2); Sodium Level 138 mmol/L (136-145); Thyroid Stim Hormone (TSH) 1.03 uIU/mL (0.358-3.74)
== END | disposition home or self-care (01) ==
LOC: MTLAB 11:38
PROVIDERS: PCP Family Medicine; Referring Provider Internal Medicine Gastroenterology; Visit Provider Internal Medicine Gastroenterology
DX: R19.7 Diarrhea, unspecified (principal); R63.4 Abnormal weight loss
CPT/HCPCS: 36415; 80053; 84443; 85027; 86140

== ENCOUNTER → 2022-01-13 | Outpatient (CLI) | payer BC, SELFPAY ==
--- NOTE | 2022-01-13 10:00 | RAD_ITS ---
INDICATION: ABD PAIN EXAMINATION/TECHNIQUE: Barium oral contrast was administered orally via no to the patient. Total Fluoroscopic Time: 42 seconds AND number of Fluoroscopic Images: 8 OR Radiation dosage index: 25.99 mGy COMPARISON: None. FINDINGS: Initial optical technician abdomen radiograph demonstrates a surgical clip in the right upper quadrant and moderate stool burden with an otherwise nonobstructive bowel gas pattern. There is no small bowel obstruction. Small bowel transit time is within normal limits. The mucosal pattern is unremarkable. The terminal ileum is unremarkable. RAD/Small Bowel Series Only IMPRESSION: Negative. Electronically Signed: Yfn Garcia, at 13:06 EST ,
== END | disposition home or self-care (01) ==
LOC: RAD 09:55
PROVIDERS: PCP Family Medicine; Referring Provider Internal Medicine Gastroenterology; Visit Provider Internal Medicine Gastroenterology
DX: R10.9 Unspecified abdominal pain (principal); R19.7 Diarrhea, unspecified
CPT/HCPCS: 74250

== ENCOUNTER → 2023-08-17 | Outpatient (CLI) | payer SELFPAY ==
[2023-08-17 17:06] LABS: Absolute Lymphocyte Count 2.91 X10^3/uL (0.83-4.51); Absolute Neutrophil Count 5.7 X10^3/uL (2.0-7.7); Basophil# 0.08 X10^3/uL; Basophil% 0.8 % (0-1); Eosinophil# 0.13 X10^3/uL; Eosinophils% 1.4 % (0-5); Hematocrit 39.6 % (37-47); Hemoglobin 12.7 g/dL (12.0-15.0); Lymphocyte # 2.91 X10^3/ul (0.83-4.51); Lymphocyte % 30.6 % (19-41); Mean Corp Hgb Conc 32.1 g/dL (32-36); Mean Corpuscular Hgb 27.7 pg (27.0-32.0); Mean Corpuscular Volume 86.3 fL (81-99); Mean Platelet Vol. 8.4 fl (6.2-12.0); Monocyte# 0.66 X10^3/uL; Monocyte% 6.9 % (0-10); NRBC Flagged by Analyzer 0 % (0-5); Neutrophil # 5.72 X10^3/uL (2.7-7.7); Neutrophil % 60.1 % (47-70); Platelet Count 444 K/mm3 (150-450); RBC Distribution Width CV 14.1 % (11.6-14.6); RBC Distribution Width SD 44.5 fl (35.1-43.9); Red Blood Count 4.59 M/mm3 (4.2-5.4); White Blood Count 9.5 K/mm3 (4.4-11.0)
[2023-08-17 17:22] LABS: Vitamin B12 367 pg/mL (211-911)
[2023-08-17 17:24] LABS: ALB/GLOB Ratio 0.8 RATIO (0.9-2.4); AST(SGOT) 13 U/L (15-37); Alanine Aminotransfer ALT/SGPT 15 U/L (13-56); Albumin, Serum 3.6 g/dL (3.2-5.0); Alkaline Phosphatase 84 U/L (45-117); Anion Gap 6 (5-15); BUN 6 mg/dL (7-18); BUN/Creat Ratio 8.4 RATIO (10-20); Calcium,Total 9.3 mg/dL (8.5-10.1); Chloride 101 mmol/L (98-107); Cholesterol 234 mg/dL (200); Creatinine, Serum 0.71 mg/dL (0.55-1.02); EST Glomerular Filtration Rate 89 mL/min (>60); Est Glom Filt Rate - Afr Amer 108 mL/min (>60); Globulin 4.7 g/dL (2.2-4.2); Glucose 102 mg/dL (74-106); High Density Lipoprotein 91 mg/dL; Magnesium 2.5 mg/dL (1.6-2.6); Potassium 3.8 mmol/L (3.5-5.1); Protein, Total 8.3 g/dL (6.4-8.2); Sodium Level 134 mmol/L (136-145); Triglycerides 108 mg/dL; Very Low Density Lipoprotein 22 mg/dL (5-40)
== END | disposition home or self-care (01) ==
LOC: BFHLAB 15:05
PROVIDERS: PCP Family Medicine; Referring Provider Nurse Practitioner Family; Visit Provider Nurse Practitioner Family
DX: Z00.01 Encounter for general adult medical examination with abnormal findings (principal); E56.9 Vitamin deficiency, unspecified; E78.5 Hyperlipidemia, unspecified; I10 Essential (primary) hypertension
CPT/HCPCS: 36415; 80053; 80061; 82306; 82607; 83735; 85025